=== PATIENT | male | born 1965 ===

== ENCOUNTER 2024-11-25 09:07 | Outpatient (AMB) | payer OTHER, SELFPAY ==
--- NOTE | 2024-11-25 09:14 | A.OFFPC_ITS ---
Vital Signs 11/25/24 09:16 Height 5 ft 10.47 in Weight 186 lb 6 oz BMI 26.4 BP 130/72 Blood Pressure Location Lt brachial Position Sitting Pulse 66 Pulse Source Pulse Oximeter Temp 97.3 F Temp Source Temporal Artery Scan Pulse Oximetry (%) 98 Oxygen Delivery Method Room Air Intake Visit Reasons: establish care Intake Note: Patient is a new patient here to establish care for Wellness visit. Transferring care from unknown. Medical records have been requested and have not received. House Father Required: No Insurance Defense Attorney: Present Accompanied by: Spouse Allergies No Known Allergies Allergy (Verified 11/25/24 09:33) Medication List - Last Reconciled 11/25/24 by Chayito Del Real PA-C No Known Home Meds Tobacco use date assessed: 11/25/24 Dental Screening Dental Screen Date: 11/25/24 Did you have a dental visit in the last 12 months?: No Did you have a dental problem in the last 6 months where you did not have access to dental care?: No Was dental information given to patient?: No HPI establish care HPI Details 58 year old male coming to the office fo r the 1st time. The patient is a 58-year-old male presenting with a wellness visit and evaluation of persistent phlegm. Previously being seen by [facility]. History of a heart murmur diagnosed in youth, formerly requiring prophylactic antibiotics for dental procedures, with no current symptoms of cardiac issues. The patient also reports a phlegm issue persisting for two years, primarily noticeable when sedentary. The use of Mucinex to address the symptom was ineffective. The patient?s family history includes ovarian cancer in the mother. He denies regular medication use except for occasional [id number] analgesics. Colorectal cancer screening: Not completed Vaccinations: Up-to-date on tetanus vaccine, not a candidate for pneumonia due to age and lack of comorbidities, declines flu shot today PSA: Has not been completed many years [facility] Medical History Heart murmur Surgical History History of hand surgery Family History (Updated 11/25/24 @ 09:36 by Chayito Del Real PA-C) Mother Ovarian cancer Social History Housing: Apartment Alcohol intake: never Patient Tobacco Use Status: Former Tobacco user Years Smoked: quit 35 years ago e-Cigarette/Vaping Use: Never Used Second Hand Smoke Exposure: Yes service: No Current occupational status: unemployed Cognitive needs: No Hearing needs: No Vision needs: Yes (Glasses) Questionnaire PHQ-9 Over the last 2 weeks, how often have you been bothered by any of the following problems? 1. Little interest or pleasure in doing things: not at all 2. Feeling down, depressed, or hopeless: not at all 3. Trouble falling or staying asleep, or sleeping too much: not at all 4. Feeling tired or having little energy: not at all 5. Poor appetite or overeating: not at all 6. Feeling bad about yourself - or that you are a failure or have let yourself or your family down: not at all 7. Trouble concentrating on things, such as reading the newspaper or watching television: not at all 8. Moving or speaking so slowly that other people could have noticed. Or the opposite - being so fidgety or restless that you have been moving around a lot more than usual: not at all 9. Thoughts that you would be better off or of hurting yourself in some way: not at all Total score: 0 Depression Screening Interpretation: Negative Depression Screening Done: Yes Source: Developed by Drs. Victor Hugo Lawton, Ly Natarajan, Refugio Galvan and colleagues, with an educational cassia from [employer]. Thrive Questionnaire Date Thrive assessed: 11/25/24 I am a: Patient What is your living situation today?: I have a steady place to live Within the past 12 months, did the food you bought not last and you didn't have the money to get more?: Never true Within the past 12 months, did you worry whether your food would run out before you got money to buy more?: Never true Do you have trouble paying for medicines?: No Do you have trouble getting transportation to medical appointments?: No Do you have trouble paying your heating and electricity bill?: No Do you have trouble taking care of your child, family member or friend?: No Do you have trouble with day-to-day activities such as bathing, preparing meals, shopping, managing finances, etc.?: No Are you currently unemployed and looking for a job?: No Are you interested in more education?: No Please select the resources that you would like help with: None Currently or been in a relationship where the following occur: No concerns re ported THRIVE Score: 0 AUDIT C Alcohol Use Questionnaire (AUDIT-C) 1. How often do you have a drink containing alcohol?: Never Total Score: 0 SHANTELLE-7 AMB Questionnaire SHANTELLE-7 Date SHANTELLE - 7 assessed: 11/25/24 Feeling nervous, anxious, or on edge: 0 = Not at all Not being able to stop or control worryin = Not at all Worrying too much about different things: 0 = Not at all Trouble relaxin = Not at all Being so restless that it is hard to sit still: 0 = Not at all Becoming easily annoyed or irritable: 0 = Not at all Feeling afraid as if something awful might happen: 0 = Not at all Total SHANTELLE-7 score (0-4 normal; 5-9 mild; 10-14 moderate; 15-21 severe): 0 Source: Developed by Drs. Victor Hugo Lawton, Ly Natarajan, Refugio Galvan and colleagues, with an educational cassia from [employer]. Review of Systems Const Denies body aches, Denies chills, Denies fever(s), Denies headache(s) and Denies poor appetite Eyes Reports no additional complaints ENT Denies dysphagia, Denies dizziness, Denies headache(s) and Denies odynophagia Card Denies chest pain, Denies syncope, Denies edema, Denies irregular heart rhythm, Denies lightheadedness and Denies dyspnea Resp Denies cough and Denies dyspnea GI Denies abdominal pain, Denies constipation, Denies dysphagia, Denies dyspepsia, Denies heartburn, Denies diarrhea, Denies nausea, Denies odynophagia and Denies vomiting Reports no additional complaints Musc Reports no additional complaints and Denies abnormal gait Skin/Breast Reports system reviewed and no additional complaints, except as documented Neuro Denies abnormal gait, Denies dizziness, Denies syncope and Denies headache(s) Psych Reports no additional complaints Physical exam (Primary Care) Vital Signs: Last Vital Signs Temp 97.3 F 11/25/24 09:16 Pulse 66 11/25/24 09:16 BP 130/72 11/25/24 09:16 Pulse Ox 98 11/25/24 09:16 Oxygen Delivery Method Room Air 11/25/24 09:16 BMI result Body Mass Index 26.4 Tobacco/Smoking Status: Tobacco use Status Tobacco use date assessed 11/25/24 11/25/24 09:20 Patient Tobacco Use Status Former Tobacco user 11/25/24 09:26 e-Cigarette/Vaping Use Never Used 11/25/24 09:25 PHQ-9: PHQ-9 Score PHQ-9: Total score 0 11/25/24 09:36 Depression Screening Interpretation: Negative Thrive Assessment: Date of Thrive Assessment Date Thrive assessed 11/25/24 11/25/24 09:20 Currently or been in a relationship where the following occur: No concerns reported Const General: cooperative, healthy appearing, comfortable and no acute distress Orientation/consciousness: patient oriented x3 HENMT Head: Yes normocephalic Ears: hearing grossly normal bilaterally General nose exam: Normal external nose present Face and sinus: Yes normal facial exam and Yes sinuses nontender Mouth: Normal oral and palatal mucosa present and tongue normal Throat: Yes posterior oropharynx normal Eyes General: appearance normal, both eyes and all related structures Conjunctivae: conjunctivae normal Pupils: Equal, round and reactive pupils present EOM: EOMs intact bilaterally and No Nystagmus present Neck Neck: Yes full ROM and Yes no lymphadenopathy Chest Chest palpation & inspection: normal inspection of the chest Resp Effort & Inspection: normal respiratory effort Auscultation: clear to auscultation bilaterally, no crackles, no rales, no rhonchi and no wheezes Cardio Rate: regular rate Rhythm: regular rhythm Peripheral pulses: radial pulses present and dorsalis pedis present GI Inspection: Yes normal to inspection and No Abdominal wall edema Palpation (GI): Soft to palpation, not firm and nontender Auscultation: normal bowel sounds Rectal Exam - Male: Yes deferred General: Yes no CVA tenderness Back/Spine/Pelvis Back: no CVA tenderness Skin General skin exam: no rashes or lesions noted Neuro General: patient oriented x3 Cranial nerves: Yes Equal, round and reactive pupils present, Yes Midline tongue present, Yes Ability to bilaterally elevate shoulders present and No Nystagmus present Gait exam (Neuro): Normal gait present Extrem General: Yes normal to inspection, Yes full ROM and No edema Psych Speech and movement: Normal speech and movement present Affect: normal affect Attitude: cooperative Insight: Good insight present (Psych) Judgement: Good judgement present (Psych) Coding Level of Care Code New Pt Prev Care 40-64y(54757) Diagnoses Screening for hypercholesterolemia Z13.220 Annual physical exam Z00. Phlegm in throat R09.89 Assessment & Plan Assessment & Plan (1) Screening for hypercholesterolemia: Code(s): Z13.220 - Encounter for screening for lipoid disorders Category: Medical Plan: Ordered for blood work today (2) Annual physical exam: Code(s): Z00. - Encounter for general adult medical examination without abnormal findings Category: Medical Plan: Blood work to include cholesterol and prostate-specific antigen levels will be ordered. The patient prefers the Cologuard test for initial colorectal cancer screening, reserving colonoscopy for any positive result. Given the exam findings, no cardiac workup is indicated currently. Vaccination statuses reviewed, with influenza vaccine declined. Patient advised to follow up with a vision care appointment, being reliant on corrective lenses. The patient will establish a consistent exercise routine and follow up annually unless interim concerns arise. (3) Phlegm in throat: Code(s): R09.89 - Other specified symptoms and signs involving the circulatory and respiratory systems Category: Medical Plan: The patient will begin Zyrtec or Claritin and Flonase to address phlegm, suggesting a possible allergic trigger. Advised patient to reach out if symptoms worsen or persist Plan This note was constructed using voice recognition software. While every effort has been made to ensure accuracy and engine repairer, still areas may have been included sometimes these areas may affect the content or meeting of the given symptoms. Total time spent caring for the patient today was 30 minutes. This includes time spent before the visit reviewing the chart, time spent during the visit, and time spent after the visit and documentation. Patient was informed and verbally consented to the use of an ambient scribe for clinic note documentation during this visit. Orders: Orders Comprehensive Met. Panel Today Z00.00 - Encounter for general adult medical examination without abnormal findings PSA, Ultra Sensitive Today Z00.00 - Encounter for general adult medical exa mination without abnormal findings Vitamin B12 and Folate Today Z00.00 - Encounter for general adult medical examination without abnormal findings Complete Blood Count Auto Diff Today Z00.00 - Encounter for general adult medical examination without abnormal findings Lipid Panel Today Z13.220 - Encounter for screening for lipoid disorders Vitamin D 25-OH Total Today Z00.00 - Encounter for general adult medical examination without abnormal findings TSH reflex Free T4 Today Z00.00 - Encounter for general adult medical examination without abnormal findings Referrals Cologuard Test Z12.11 - Encounter for screening for malignant neoplasm of colon
[2024-11-25 09:16] VITALS: BP 130/72; PULSE 66; TEMP 36.3; O2SAT 98; BMI 26.4
== END 2024-11-25 09:58 | disposition home or self-care (01) ==
DX: Z13.220 Encounter for screening for lipoid disorders (principal); Z00.00 Encounter for general adult medical examination without abnormal findings; R09.89 Other specified symptoms and signs involving the circulatory and respiratory systems

== ENCOUNTER → 2024-11-25 09:07 | Outpatient (BNVA) | payer OTHER, SELFPAY | DX: Z00.00 Encounter for general adult medical examination without abnormal findings (principal); R09.89 Other specified symptoms and signs involving the circulatory and respiratory systems | CPT/HCPCS: 99386 ==

== ENCOUNTER 2025-01-10 07:58 | Outpatient (REF) | payer OTHER, SELFPAY ==
[2025-01-10 08:16] LABS: MANUAL DIFF FLAG NO
[2025-01-10 08:25] LABS: Basophils Absolute Auto 0.1 X10*3/uL (0.0-0.2); Basophils Percent Auto 0.8 % (0-2); Eosinophils Absolute Auto 0.3 X10*3/uL (0.0-0.4); Hematocrit 42.6 % (42.0-52.0); Hemoglobin 14.8 g/dl (14.0-18.0); Imm Gran Abs Auto 0.03 X10*3/uL (0.00-0.03); Imm Gran Pct Auto 0.4 % (0.0-0.4); Lymphocytes Percent Auto 27.6 % (20-40); Mean Corpuscular HGB Conc 34.7 g/dl (31.0-36.0); Mean Corpuscular Hemoglobin 29.9 pg (27.0-33.0); Mean Corpuscular Volume 86.1 fL (80.0-98.0); Mean Platelet Volume 8.4 fL (9.4-12.4); Monocytes Absolute Auto 0.6 X10*3/uL (0.1-1.2); Monocytes Percent Auto 8.4 % (2-11); Neutrophils Absolute Auto 4.2 x10*3/uL (2.0-8.3); Neutrophils Percent Auto 58.8 % (45-73); Platelet Count 287 X10*3/uL (160-400); Red Blood Count 4.95 X10*6/uL (4.60-5.80); Red Cell Distribution Width 13.2 % (11.0-16.0); White Blood Count 7.2 X10*3/uL (4.8-10.8)
[2025-01-10 09:14] LABS: Alanine Aminotransferase 23 U/L (0-40); Albumin Level 4.5 g/dL (3.5-5.0); Alkaline Phosphatase 67 U/L (39-117); Anion Gap 10 (12-20); Aspartate Amino Transferase 23 U/L (5-37); Bilirubin Total 1.9 mg/dL (0.0-1.0); Blood Urea Nitrogen 14 mg/dL (9-16); Calcium 9.4 mg/dL (8.4-10.2); Carbon Dioxide 28 mmol/L (22-29); Chloride 107 mmol/L (96-108); Cholesterol 187 mg/dL (<200); Estimated Glomerular Filt Rate > 60; Glucose Random 96 mg/dL (60-115); HDL Cholesterol 68 mg/dL (>40); LDL Cholesterol Calculated 109 mg/dL (<100); Potassium 4.7 mmol/L (3.3-5.1); Sodium 140 mmol/L (135-145); Total Protein 7.1 g/dL (6.5-8.0); Triglycerides 50 mg/dL (<150)
[2025-01-10 09:20] LABS: TSH reflex Free T4 2.35 uIU/mL (0.32-4.0); Vitamin D 25-OH Total 29.7 ng/mL (>30)
[2025-01-10 09:33] LABS: Folate 13.2 ng/mL (> or = 4.0); Vitamin B12 411 pg/mL (200-900)
[2025-01-13 23:28] LABS: PSA, Ultra Sensitive 7.71 ng/mL
== END 2025-01-10 07:59 | disposition home or self-care (01) ==
LOC: HO.LAB 07:58
DX: Z00.00 Encounter for general adult medical examination without abnormal findings (principal); Z13.220 Encounter for screening for lipoid disorders
CPT/HCPCS: 36415; 80053; 80061; 82306; 82607; 82746; 84153; 84443; 85025